=== PATIENT | male | born 1955 | race Two or more races ===

== ENCOUNTER 2021-12-25 15:17 | Inpatient (IN) | payer OTHER ==
[~2021-12-25] VITALS: Ht 167.6 cm; Wt 81.6 kg
[2021-12-28] MEDS ORDERED: FLUOCINOLONE AC60 ML (11:13)
== END 2021-12-31 23:38 | disposition home or self-care (01) | DRG 331 ==
LOC: O/R 12-28 05:35 → SURH 12-28 05:35
PROVIDERS: ADMIT Surgery; ATTEND Surgery
PROC: 0DTF4ZZ Resection of Right Large Intestine, Percutaneous Endoscopic Approach (ICD-10-PCS; principal; 2021-12-28 07:00)
PROC: BW24YZZ Computerized Tomography (CT Scan) of Chest and Abdomen using Other Contrast (ICD-10-PCS; 2021-12-29)
DX: D12.2 Benign neoplasm of ascending colon (principal); D49.0 Neoplasm of unspecified behavior of digestive system; R59.0 Localized enlarged lymph nodes; R09.02 Hypoxemia; Z20.822 Contact with and (suspected) exposure to COVID-19